=== PATIENT | female | born 1975 | race Caucasian/White ===

== ENCOUNTER 2019-01-04 09:33 | Emergency (ER) | payer OTHER ==
[2019-01-04] MEDS ORDERED: TORAdol 30 mg Injection IM ONE (10:06)
[2019-01-04 10:07] VITALS: BP 146/86; PULSE 78; O2SAT 97
[2019-01-04] MEDS ORDERED: TORAdol 30 mg Injection ONE (10:13)
--- NOTE | 2019-01-04 10:15 | ERPHSYRPT ---
- History of Present Illness Time Seen by Provider: 01/04/19 10:13 Source: patient Exam Limitations: no limitations Patient Subjective Stated Complaint: alert and oriented. states fell into a hole twisting right ankle. states heard pop Triage Nursing Assessment: states fell into a hoole twisting right ankle.. pain and swelling to lateral aspect of the ankle bruising noted. + pedal pulse present. denies other injuries Physician History: alert and oriented. states fell into a hole twisting right ankle. states heard pop Method of Injury: fell Occurred: yesterday Quality: constant, throbbing Severity of Pain-Max: moderate Severity of Pain-Current: moderate Lower Extremities Pain: ankle: right Modifying Factors: Improves With: cold therapy Associated Symptoms: unable to bear weight Allergies/Adverse Reactions: terfenadine [From Seldane] Allergy (Severe, Verified 07/22/15 09:01) Home Medications: Hydrocodone Bit/Acetaminophen [[place] 7.5-325 Tablet] 1 each PO Q3H/PRN PRN 09/20 [History] Methylprednisolone 4 mg [Medrol 4 mg] 4 mg PO DAILY 10/13/15 [History] Immunizations Up to Date: (unknown) - Review of Systems Constitutional: No Symptoms Eyes: No Symptoms Ears, Nose, & Throat: No Symptoms Respiratory: No Symptoms Cardiac: No Symptoms Abdominal/Gastrointestinal: No Symptoms Musculoskeletal: Deformity, Fall, Joint Pain (right ankle), Joint Swelling - Past Medical History Pertinent Past Medical History: Yes Neurological History: No Pertinent History ENT History: No Pertinent History Cardiac History: No Pertinent History Respiratory History: No Pertinent History Endocrine Medical History: No Pertinent History GI Medical History: No Pertinent History History: No Pertinent History Psycho-Social History: No Pertinent History Female Reproductive Disorders: No Pertinent History Other Medical History: bulging disc - Past Surgical History Past Surgical History: Yes Neuro Surgical History: No Pertinent History Cardiac: No Pertinent History Respiratory: No Pertinent History Gastrointestinal: Cholecystectomy Genitourinary: No Pertinent History Musculoskeletal: No Pertinent History Female Surgical History: No Pertinent History - Social History Smoking Status: Never smoker How long have you smoked: 20+ YEARS Exposure to second hand smoke: No Drug Use: none Patient Lives Alone: No - Female History Hx Now: No - Nursing Vital Signs Nursing Vital Signs: Initial Vital Signs Temperature 97.8 F 01/04/19 09:59 Pulse Rate 78 01/04/19 09:59 Respiratory Rate 18 01/04/19 09:59 Blood Pressure 146/86 01/04/19 09:59 O2 Sat by Pulse Oximetry 97 01/04/19 09:59 Pain Scale Pain Intensity 8 - Physical Exam General Appearance: no apparent distress Ankle Exam: right ankle: limited range of motion, soft tissue tenderness, swelling SpO2: 97 Procedures - Splinting Location of Splint: Right Type of Splint: Walking Boot/Shoe Splint Applied By: ED Nurse Pre-Proc Neuro Vasc Exam: normal Post-Proc Neuro Vasc Exam: neurovascular intact - Course Nursing assessment & vital signs reviewed: Yes - Radiology Exams Ankle X-ray Interpretation: Reviewed by me, Negative, No Fracture, No Subluxation Ordered Tests: Active Orders 24 hr Category Date Time Status Splint STAT Care 01/04/19 10:35 Active ANKLE (3 VIEWS) Stat Exams 01/04/19 10:05 Taken Medication Summary Discontinued Medications Generic Name Dose Route Start Last Admin Trade Name Freq PRN Reason Stop Dose Admin Ketorolac Tromethamine 60 mg 01/04/19 10:06 01/04/19 10:16 Toradol 30 Mg Injection IM 01/04/19 10:07 60 mg STAT ONE Administration Ketorolac Tromethamine Confirm 01/04/19 10:13 Toradol 30 Mg Injection Administered 01/04/19 10:14 Dose 60 mg .ROUTE .STK-MED ONE - Progress Progress: improved, pain not gone completely Progress Note: 01/04/19 10:37 boot applied Counseled pt/family regarding: diagnosis, need for follow-up, rad results - Departure Departure Disposition: Home Clinical Impression: High ankle sprain of right lower extremity Qualifiers: Encounter type: initial encounter Qualified Code(s): S93.431A - Sprain of tibiofibular ligament of right ankle, initial encounter Condition: Stable Critical Care Time: No Referrals: ANU LU [Primary Care Provider] - Followup in 3 days w/ PCP Instructions: Foot Sprain (DC) Additional Instructions: SPRAINS/STRAINS/CONTUSIONS 1. Rest the affected area as much as possible for the next few days. 2. Apply ice to the affected area for 20-30 minutes at a time, several times a day. 3. If you receive an elastic wrap, wear it only while awake for comfort and support. Re-wrap the elastic wrap if it feels too tight or too loose. 4. If swelling is present, elevate the affected part above the level of the heart for at least 2 to 3 days. 5. Use splints, slings, or crutches as instructed. 6. Watch for severe swelling, coldness, numbness, and discoloration of the fingers and toes. See your family physician or return to the emergency department if any of these are noted. Discharge/Care Plan KARAN AVALOS was seen on 01/04/19 in the Emergency Room. The patient was counseled regarding Diagnosis,Lab results, Imaging studies, need for follow up and when to return to the Emergency Room. Prescriptions given: Discharge Note I have spoken with the patient and/or caregivers. I have explained the patient' s condition, diagnosis and treatment plan based on the information available to me at this time. I have answered the patient's and/or caregiver's questions and addressed any concerns. The patient and/or caregivers have as good understanding of the patient's diagnosis, condition and treatment plan as can be expected at this point. The vital signs have been stable. The patient's condition is stable and appropriate for discharge from the emergency department. The patient will pursue further outpatient evaluation with the primary care physician or other designated or consulting physician as outlined in the discharge instructions. The patient and/or caregivers are agreeable to this plan of care and follow-up instructions have been explained in detail. The patient and/or caregivers have received these instruction. The patient/and or caregivers are aware that any significant change in condition or worsening of symptoms should prompt an immediate return to this or the closest emergency department or call 911. Forms: Work/School Release Form Prescriptions: Naproxen 500 mg [Naprosyn 500 MG] 500 mg PO BIDAC #30 tablet
--- NOTE | 2019-01-04 20:14 | XRAY ---
Indication: Pain and swelling following injury. Comparison: None 3 views of the right ankle demonstrates lateral soft tissue swelling. No other bony, articular, or soft tissue abnormalities.
== END 2019-01-04 11:16 | disposition home or self-care (01) ==
LOC: ED 09:33
DX: S93.431A Sprain of tibiofibular ligament of right ankle, initial encounter (principal)
CPT/HCPCS: 73610; 96372; 99283; J1885

== ENCOUNTER 2021-07-22 16:13 | Emergency (ER) | payer OTHER ==
[2021-07-22] MEDS ORDERED: TORAdol 30 mg Injection IM ONE (17:13)
[2021-07-22] MEDS ORDERED: TORAdol 30 mg Injection ONE (17:17)
--- NOTE | 2021-07-22 17:19 | ERPHSYRPT ---
- History of Present Illness Time Seen by Provider: 07/22/21 16:32 Source: patient Exam Limitations: no limitations Patient Subjective Stated Complaint: Patient states she tripped and fell on and fell on her right arm. She is c/o right arm pain from her shoulder all the way down to her wrist. Rates pain #10 on 0-10 scale. Triage Nursing Assessment: Patient ambulated back to ED. She is holding her right arm across her chest in a gaurding fashion. She is alert and oriented and answering questions appropriately. Patient is able to wiggle fingers to right hand but states when she does that is shoots a sharp pain up her forearm. Patient able to raise right arm off of bed on her own but indicates that if she raises it too high, it shoots a sharp pain through her shoulder and armpit. Cap refill rapid. Color normal skin tone. Physician History: 45 years old female presented in the ER with chief complaint of right shoulder and elbow pain after she tripped and fell 2 days ago and tried to stop herself with right upper extremity. Since then she is having gradually worsening sharp pain moderate to severe intensity, more with movements and partially relieved with holding it closer to chest wall. Did not hit her head. No loss of consciousness. Occurred: days ago (2) Method of Injury: fell Quality: sharpness Severity of Pain-Max: severe Severity of Pain-Current: severe Extremities Pain Location: shoulder: right, arm: right, elbow: right Modifying Factors: Improves With: immobilization, rest. Worsens With: movement Associated Symptoms: none Allergies/Adverse Reactions: terfenadine [From Seldane] Allergy (Severe, Verified 07/22/21 16:39) Hx Tetanus, Diphtheria Vaccination/Date Given: Yes Hx Influenza Vaccination/Date Given: No Hx Pneumococcal Vaccination/Date Given: No Immunizations Up to Date: Yes Travel Risk - International Travel Have you traveled outside of the country in past 3 weeks: No - Coronavirus Screening Are you exhibiting any of the following symptoms?: No Close contact with a COVID-19 positive Pt in past 14-21 Days: No - Vaccine Status Have you recieved a Covid-19 vaccination: Yes Cable Respooler: Moderna - Vaccination Dates Date of 2cond Vaccination (if applicable): unknown - Review of Systems Constitutional: No Symptoms Eyes: No Symptoms Ears, Nose, & Throat: No Symptoms Respiratory: No Symptoms Cardiac: No Symptoms Abdominal/Gastrointestinal: No Symptoms Genitourinary Symptoms: No Symptoms Musculoskeletal: Fall, Joint Pain Skin: No Symptoms Neurological: No Symptoms Psychological: No Symptoms Endocrine: No Symptoms Hematologic/Lymphatic: No Symptoms - Past Medical History Pertinent Past Medical History: Yes Neurological History: No Pertinent History ENT History: No Pertinent History Cardiac History: No Pertinent History Respiratory History: No Pertinent History Endocrine Medical History: No Pertinent History GI Medical History: No Pertinent History History: No Pertinent History Psycho-Social History: No Pertinent History Female Reproductive Disorders: No Pertinent History Other Medical History: bulging disc - Past Surgical History Past Surgical History: Yes Neuro Surgical History: No Pertinent History Cardiac: No Pertinent History Respiratory: No Pertinent History Gastrointestinal: Cholecystectomy Genitourinary: No Pertinent History Musculoskeletal: No Pertinent History Female Surgical History: No Pertinent History Other Surgical History: cryo surgery - Social History Smoking Status: Current every day smoker How long have you smoked: 30 years Exposure to second hand smoke: No Drug Use: none Patient Lives Alone: No - Female History Hx Now: No - Nursing Vital Signs Nursing Vital Signs: Initial Vital Signs Temperature 97.5 F 07/22/21 16:41 Pulse Rate 92 H 07/22/21 16:41 Respiratory Rate 18 07/22/21 16:41 Blood Pressure 130/78 07/22/21 16:41 O2 Sat by Pulse Oximetry 98 07/22/21 16:41 Pain Scale Pain Intensity 10 - Physical Exam General Appearance: no apparent distress, alert Eyes, Ears, Nose, Throat Exam: normal ENT inspection, pharynx normal, moist mucous membranes Neck Exam: normal inspection, non-tender, supple, full range of motion Cardiovascular/Respiratory Exam: chest non-tender, normal breath sounds, regular rate/rhythm, heart sounds normal Abdominal Exam: non-tender, soft Back Exam: normal inspection, normal range of motion, No CVA tenderness Shoulder Exam: normal inspection, bone tenderness, limited ROM, soft tissue tenderness (Right) Elbow/Forearm Exam: normal inspection, limited ROM (Right), soft tissue tenderness Wrist Exam: normal inspection, non-tender, no evidence of injury, normal ROM Hand Exam: normal inspection, non-tender, no evidence of injury Neuro/Tendon Exam: normal sensation, normal motor functions Mental Status Exam: alert Skin Exam: normal color SpO2 Interpretation: normal SpO2: 98 O2 Delivery: Room Air Ordered Tests: Active Orders 24 hr Category Date Time Status ELBOW (MINIMUM 3 VIEWS) Stat Exams 07/22/21 16:39 Ordered FOREARM Stat Exams 07/22/21 16:40 Ordered HUMERUS Stat Exams 07/22/21 16:39 Ordered SHOULDER Stat Exams 07/22/21 16:38 Ordered WRIST (MIN 3 VIEWS) Stat Exams 07/22/21 16:40 Ordered Medication Summary Generic Name Dose Route Start Last Admin Trade Name Freq PRN Reason Stop Dose Admin Ketorolac Tromethamine 30 mg 07/22/21 17:13 Ketorolac Tromethamine 30 Mg/Ml Inj IM 07/22/21 17:14 STAT ONE - Progress Progress: pain not gone completely Progress Note: 07/22/21 17:19 I did not appreciate any obvious fracture dislocation on x-rays reviewed by me, official report is pending. She is placed in a sling, probably have ligamentous strain, will give NSAIDs and muscle relaxant to go home. Outpatient follow-up. Counseled pt/family regarding: diagnosis, need for follow-up, rad results - Departure Departure Disposition: Home Clinical Impression: Right shoulder strain Qualifiers: Encounter type: initial encounter Qualified Code(s): S46.911A - Strain of unspecified muscle, fascia and tendon at shoulder and upper arm level, right arm, initial encounter Fall Qualifiers: Encounter type: initial encounter Qualified Code(s): W19.XXXA - Unspecified fall, initial encounter Condition: Stable Critical Care Time: No Referrals: ANU [facility] [Primary Care Provider] - Follow Up with PCP/3 days [facility] - NICOLE FOURNIER NP [NON-STAFF PHY W/O PRIVILEGES] - Follow up/PCP as directed (In 2 days for reevaluation) Instructions: Shoulder Sprain Additional Instructions: Take Tylenol/ibuprofen as needed. Follow-up with your primary care/orthopedic surgery for reevaluation. Return to ER for worsening pain. Avoid exertional activity with right upper extremity. Prescriptions: Ibuprofen 600 mg PO Q6HPRN PRN 10 Days #20 tablet PRN Reason: Pain Methocarbamol 500 mg [Robaxin 500 MG] 500 mg PO Q6-8HPRN PRN 7 Days #20 tablet PRN Reason: Pain
[2021-07-22 17:26] VITALS: BP 105/72; PULSE 72; O2SAT 99
--- NOTE | 2021-07-22 19:38 | XRAY ---
Indication: Pain following fall 3 days ago. Comparison: None 3 view right shoulder mild AC degenerative arthropathy and a few axillary calcified nodes. No other bony, articular, or soft tissue abnormalities.
--- NOTE | 2021-07-22 19:38 | XRAY ---
Indication: Pain following fall 3 days ago. Comparison: None 2 view right humerus demonstrates a few axillary calcified nodes. No other bony, articular, or soft tissue abnormalities.
--- NOTE | 2021-07-22 19:38 | XRAY ---
Indication: Pain following fall 3 days ago. Comparison: None 3 view right elbow obtained. No bony, articular, or soft tissue abnormalities.
--- NOTE | 2021-07-22 19:40 | XRAY ---
Indication: Pain following fall 3 days ago. Comparison: None 3 view right wrist obtained. No bony, articular, or soft tissue abnormalities.
--- NOTE | 2021-07-22 19:40 | XRAY ---
Indication: Pain following fall 3 days ago. Comparison: None 2 view right forearm obtained. No bony, articular, or soft tissue abnormalities.
== END 2021-07-22 17:33 | disposition home or self-care (01) ==
LOC: ED 16:13
DX: S46.911A Strain of unspecified muscle, fascia and tendon at shoulder and upper arm level, right arm, initial encounter (principal); W01.0XXA Fall on same level from slipping, tripping and stumbling without subsequent striking against object, initial encounter; M25.521 Pain in right elbow; Z72.0 Tobacco use
CPT/HCPCS: 73030; 73060; 73080; 73090; 73110; 96372; 99284; J1885

== ENCOUNTER 2023-01-01 15:23 | Emergency (ER) | payer OTHER ==
--- NOTE | 2023-01-01 15:39 | ERPHSYRPT ---
- History of Present Illness Time Seen by Provider: 01/01/23 15:39 Source: patient Exam Limitations: no limitations Physician History: This is an obese 47-year-old white female patient of Dr. Rizwan Lu who has had cough, aches, fevers and decreased appetite for approximately 6 days. She was exposed to a daughter who turned from recent travel to [place] with the same symptoms. This patient has cough production of green and brownish sputum. The patient was given a prescription for steroids, Augmentin antibiotic, and albuterol solution for nebulizer. She is also given a prescription for codeine- based cough syrup and Tessalon Perles. Initially those were helping. However since that initial dosing, her symptoms is worsened. Patient has a history of hypothyroidism, diabetes, anxiety, hypertension, hyperlipidemia. Patient is a daily smoker of cigarettes. Timing/Duration: day(s) (6) Fever Severity: mild Fever Therapy PATIENT CARE ASSISTANT: none Associated Symptoms: cough, muscle aches, shortness of breath, sore throat Allergies/Adverse Reactions: terfenadine [From Seldane] Allergy (Severe, Verified 01/01/23 15:41) Home Medications: ALPRAZolam [Alprazolam] 0.5 mg PO DAILY 01/01/23 [History] Amox Tr/Potass Clav. 875 mg [Augmentin 875-125 Tablet] 1 ea BID 01/01/23 [History] Codeine Phosphate/Guaifenesin [Codeine-Guaifen 10-100 mg/5 ml] 5 ml BID 01/01/23 [History] Empagliflozin [Jardiance] 1 ea DAILY 01/01/23 [History] Escitalopram Oxalate 20 mg PO DAILY 01/01/23 [History] Ezetimibe/Rosuvastatin Calcium [Rosuvastatin-Ezetimibe 20-10Mg] 1 each PO DAILY 01/01/23 [History] Levothyroxine Sodium 50 Mcg [Synthroid 50 Mcg] 50 mcg PO DAILY 01/01/23 [History] Metformin HCl 500 mg [Glucophage 500 MG] 500 mg PO DAILY 01/01/23 [History] Prednisone 20 mg [Deltasone 20 mg] 20 mg PO DAILY 01/01/23 [History] lisinopriL [Zestril] 2.5 mg PO DAILY 01/01/23 [History] Hx Tetanus, Diphtheria Vaccination/Date Given: Yes Hx Influenza Vaccination/Date Given: No Hx Pneumococcal Vaccination/Date Given: No Travel Risk - International Travel Have you traveled outside of the country in past 3 weeks: No - Coronavirus Screening Are you exhibiting any of the following symptoms?: Yes Symptoms: Fever, Cough: New Onset, Shortness of Breath, Headaches/Body Aches/Fatigue Close contact with a COVID-19 positive Pt in past 14-21 Days: No - Vaccine Status Have you recieved a Covid-19 vaccination: Yes Production Sound Mixer: Moderna - Vaccination Dates Date of 2cond Vaccination (if applicable): unknown - Review of Systems Constitutional: Fever, Weakness Eyes: No Symptoms Ears, Nose, & Throat: Throat Pain Respiratory: Cough, Dyspnea Cardiac: No Symptoms Abdominal/Gastrointestinal: No Symptoms Genitourinary Symptoms: No Symptoms Musculoskeletal: No Symptoms Skin: No Symptoms Neurological: No Symptoms Psychological: No Symptoms Endocrine: No Symptoms Hematologic/Lymphatic: No Symptoms Immunological/Allergic: No Symptoms All Other Systems: Reviewed and Negative - Past Medical History Pertinent Past Medical History: Yes Neurological History: No Pertinent History ENT History: No Pertinent History Cardiac History: No Pertinent History Respiratory History: No Pertinent History Endocrine Medical History: No Pertinent History GI Medical History: No Pertinent History History: No Pertinent History Psycho-Social History: No Pertinent History Female Reproductive Disorders: No Pertinent History Other Medical History: bulging disc - Past Surgical History Past Surgical History: Yes Neuro Surgical History: No Pertinent History Cardiac: No Pertinent History Respiratory: No Pertinent History Gastrointestinal: Cholecystectomy Genitourinary: No Pertinent History Musculoskeletal: No Pertinent History Female Surgical History: No Pertinent History Other Surgical History: cryo surgery - Social History Smoking Status: Current every day smoker How long have you smoked: 30 years Exposure to second hand smoke: No Drug Use: none Patient Lives Alone: No - Nursing Vital Signs Nursing Vital Signs: Initial Vital Signs Temperature 98.8 F 01/01/23 15:48 Pulse Rate 80 01/01/23 15:48 Respiratory Rate 18 01/01/23 15:48 Blood Pressure 145/97 01/01/23 15:48 O2 Sat by Pulse Oximetry 97 01/01/23 15:48 Pain Scale Pain Intensity 8 - Physical Exam General Appearance: mild distress, alert, anxiety, obese Eye Exam: PERRL/EOMI, eyes nml inspection ENT Exam: normal ENT inspection, hearing grossly normal Neck Exam: normal inspection, non-tender, supple, full range of motion, trachea midline Respiratory Exam: normal breath sounds, lungs clear, no respiratory distress, no accessory muscle use, No chest non-tender, No decreased breath sounds, No respiratory distress Cardiovascular/Chest Exam: normal heart sounds, regular rate/rhythm Gastrointestinal/Abdominal Exam: soft, non tender, no distention, no mass, no guarding, no ecchymosis, no organomegaly, no pulsatile mass, normal bowel sounds Pelvic Exam: not done Rectal Exam: not done Extremity Exam: non-tender, normal range of motion, normal inspection, normal capillary refill, no calf tenderness, no pedal edema, pelvis stable Neurologic Exam: alert, oriented x 3, cooperative, files supervisor II-XII nml as tested, normal mood/affect, nml cerebellar function, nml station & gait, sensation nml Skin Exam: normal color, warm, dry Lymphatic: No adenopathy SpO2 Interpretation: normal O2 Delivery: Room Air - Course Nursing assessment & vital signs reviewed: Yes Ordered Tests: Active Orders 24 hr Category Date Time Status CHEST 1 VIEW (PORTABLE) Stat Exams 01/01/23 16:00 Completed UA W/RFX UR CULTURE Stat Lab 01/01/23 16:06 Completed Respiratory Therapy Assessment DAILY RT 01/01/23 16:18 Active Medication Summary Discontinued Medications Generic Name Dose Route Start Last Admin Trade Name Freq PRN Reason Stop Dose Admin Hydrocodone Bitart/Acetaminophen 10 ml 01/01/23 16:01 01/01/23 16:17 Hydrocodone/Acetaminophen 5 Ml Udcup PO 01/01/23 16:02 10 ml STAT STA Administration Hydrocodone Bitart/Acetaminophen Confirm 01/01/23 16:17 Hydrocodone/Acetaminophen 5 Ml Udcup Administered 01/01/23 16:18 Dose 10 ml .ROUTE .STK-MED ONE Albuterol/Ipratropium 3 ml 01/01/23 16:06 01/01/23 16:16 Ipratropium/Albuterol Sulfate 3 Ml Ampul.Neb IH 01/01/23 16:07 3 ml STAT ONE Administration Albuterol/Ipratropium Confirm 01/01/23 16:06 Ipratropium/Albuterol Sulfate 3 Ml Ampul.Neb Administered 01/01/23 16:07 Dose 3 ml IH .STK-MED ONE Methylprednisolone Sodium 0 mg 01/01/23 16:00 01/01/23 16:18 Succinate 125 mg/ Sterile IM 01/01/23 16:01 125 mg Water 2 ml STAT ONE Administration Methylprednisolone Sodium Succinate Confirm 01/01/23 16:17 Methylprednis Sod Succ 125 Mg/2 Ml Vial Administered 01/01/23 16:18 Dose 125 mg .ROUTE .STK-MED ONE Sterile Water Confirm 01/01/23 16:16 Water For Injection,Sterile 10 Ml Vial Administered 01/01/23 16:17 Dose 10 ml IJ .STK-MED ONE Lab/Rad Data: Laboratory Results 01/01/23 01/01/23 01/01/23 Range/Units 16:10 16:10 16:06 Urine Color Yellow (Yellow) Urine Appearance Clear (Clear) Urine pH 7.5 (4.6-8.0) Ur Specific [place] 1.020 (1.005-1.030) Urine Protein Negative (Negative) Urine Glucose (UA) >=1000 A (Negative) mg/dL Urine Ketones Negative (Negative) Urine Blood Small A (Negative) Urine Nitrite Negative (Negative) Urine Bilirubin Negative (Negative) Urine Urobilinogen 0.2 (0.2) mg/dL Ur Leukocyte Esterase Trace A (Negative) U Hyaline Cast (Auto) NONE SEEN (0-2) /LPF Urine Microscopic RBC 11-20 A (0-5) /HPF Urine Microscopic WBC 0-2 (0-5) /HPF Ur Epithelial Cells Rare (None Seen) /HPF Urine Bacteria None Seen (None Seen) /HPF Urine Culture Reflexed NO (NO) Influenza Type A Ag NEGATIVE (NEGATIVE) Influenza Type B Ag NEGATIVE (NEGATIVE) RSV (PCR) NEGATIVE (NEGATIVE) SARS-CoV-2 (PCR) NEGATIVE (NEGATIVE) Group A Strep Antibody NOT DETECTED (NEGATIVE) - Progress Progress: improved Progress Note: 01/01/23 17:02 Chest x-ray was interpreted by the radiologist and I reviewed the impression. There are no acute cardiopulmonary findings. 01/01/23 17:15 This patient's medical issue is 1 of moderate complexity. The level complexity in the work-up performed is based on the review of the patient's past medical history, review of the patient's medication list, review of the patient's drug allergy list, history of present illness, physical findings on examination. Work-up includes urinalysis and viral swabs. Group A strep swab. We also performed a chest x-ray. The patient likely has an upper respiratory infection. It is difficult to discern whether or not this is viral in origin or bacterial. Patient has been on Augmentin without much improvement. She has been on Augmentin for approximately 4 to 5 days. She thinks that the h ydrocodone elixir worked better than her codeine elixir and Tessalon Perles. Therefore, the patient is to stop her codeine elixir and stop the Tessalon Perles. I discussed this with her. She is to avoid exposure to any kind of smoke. We will give her an injection of Rocephin 1 g intramuscularly. She is to continue her steroids as prescribed. She is to stop her Augmentin antibiotic. We will change her outpatient antibiotic to Z-Xavier. Patient is to use her albuterol nebulizer machine every 4 hours while awake. She is also to drink plenty of fluids and to use Mucinex DM. She may also use Lou-D or Claritin-D. Counseled pt/family regarding: lab results, diagnosis, need for follow-up, rad results Medical Desision Making - Diagnostic Testing Diagnostic test were ordered, analyzed, and reviewed by me: Yes Radiological Interpretation: Reviewed by me, Teleradiologist Report - Risk of complications The pt has a mod risk of morbidity or mortality based on: Need for prescription drug management - Departure Departure Disposition: Home Clinical Impression: Upper respiratory infection Condition: Stable Critical Care Time: No Referrals: ANU LU [Primary Care Provider] - Follow up/PCP as directed Additional Instructions: Stop your Augmentin. Use Z-Xavier instead. Continue your steroids as prescribed. Use your albuterol nebulizer every 4 hours while awake. Stop your Tessalon Perles and codeine cough medicine and use the hydrocodone cough medicine instead. Avoid exposure to any type of smoke. May use [id number] Mucinex DM, Lou-D or Claritin-D antihistamine/decongestant combination. Follow-up with your primary care provider for further evaluation management. Forms: Work/School Release Form Prescriptions: Hydrocodone/Acetaminophen [Hydrocodone-Acetamn 7.5-325/15] 10 ml PO Q8H PRN PRN #120 ml MDD 30 ml PRN Reason: Cough Azithromycin 250 mg [Zithromax 250 MG TABLET] 250 mg PO ZPACK #6 tablet
[2023-01-01] MEDS ORDERED: solu-MEDROL 125 MG, Sterile H2O 10 ml 2 ML IM ONE ×2 (16:00)
[2023-01-01] MEDS ORDERED: HYDROCODONE-ACETAMIN 2.5-108/5 ML SOLUTION PO STA (16:01)
[2023-01-01] MEDS ORDERED: DUONEB 0.5-3 MG/3 ml Neb IH ONE ×2 (16:06)
[2023-01-01] MEDS ORDERED: Sterile H2O 10 ml IJ ONE (16:16)
[2023-01-01] MEDS ORDERED: HYDROCODONE-ACETAMIN 2.5-108/5 ML SOLUTION ONE (16:17)
[2023-01-01] MEDS ORDERED: solu-MEDROL ONE (16:17)
--- NOTE | 2023-01-01 16:42 | XRAY ---
Indication: Cough. Comparison: September 17, 2022 Portable chest again demonstrates normal heart and lungs. Bony thorax intact again with minimal dextroscoliosis. No new/acute findings.
[2023-01-01 16:49] LABS: Appearance Clear (Clear); Bilirubin Negative (Negative); Blood Small (Negative); Glucose, Urine >=1000 mg/dL (Negative); Ketones Negative (Negative); Leukocyte Esterase Trace (Negative); Nitrite Negative (Negative); Ph 7.5 (4.6-8.0); Protein,Urine Dip Negative (Negative); Urobilinogen 0.2 mg/dL (0.2)
[2023-01-01 16:54] LABS: INFLUENZA A NEGATIVE (NEGATIVE); INFLUENZA B NEGATIVE (NEGATIVE); RESPIRATORY SYNCTIAL VIRUS NEGATIVE (NEGATIVE); SARS-CoV-2 Xpert Express NEGATIVE (NEGATIVE)
[2023-01-01 16:55] LABS: ADD URINE CULTURE? NO (NO); Bacteria None Seen /HPF (None Seen); Epithelial Cells Rare /HPF (None Seen); Hyaline Casts NONE SEEN /LPF (0-2); WBC 0-2 /HPF (0-5)
[2023-01-01] MEDS ORDERED: Rocephin 1000 MG INJ IM ONE (17:14)
[2023-01-01] MEDS ORDERED: XYLOCAINE 1% HCL 20 ML MDV ONE (17:35)
[2023-01-01] MEDS ORDERED: Rocephin 1000 MG INJ ONE (17:35)
[2023-01-01 17:47] VITALS: BP 124/87; PULSE 72; O2SAT 96
== END 2023-01-01 17:52 | disposition home or self-care (01) ==
LOC: ED 15:23
DX: J06.9 Acute upper respiratory infection, unspecified (principal); R50.9 Fever, unspecified; R05.9 Cough, unspecified; M79.10 Myalgia, unspecified site; E11.9 Type 2 diabetes mellitus without complications; I10 Essential (primary) hypertension; E78.5 Hyperlipidemia, unspecified; Z79.84 Long term (current) use of oral hypoglycemic drugs; Z79.52 Long term (current) use of systemic steroids; Z79.891 Long term (current) use of opiate analgesic; Z79.899 Other long term (current) drug therapy; Z72.0 Tobacco use
CPT/HCPCS: 0241U; 71045; 81001; 87651; 94640; 96372; 99283; J0696; J2930; A9270-GY

== ENCOUNTER 2024-01-22 12:11 | Emergency (ER) | payer OTHER ==
[2024-01-22 12:59] VITALS: PULSE 79; RESP 19; O2SAT 97
--- NOTE | 2024-01-22 13:06 | ERPHSYRPT ---
- History of Present Illness Time Seen by Provider: 01/22/24 12:52 Source: patient Exam Limitations: no limitations Patient Subjective Stated Complaint: My left knee cap dislocated on 01/21/24 around 0130 when I was getting otu of bed. Triage Nursing Assessment: Patient reports to ER after being seen in office by Dr. Rizwan Lu for her "dislocated left knee cap" that corrected in position. Patient reports that he left knee cap became dislocated yesterday morning around 0130 when she attempted to get out of bed. Patient reports that she twisted her knee causing it to pop out of place. Patient reports that it was out of place for an hour or so before placement was corrected. Patient reports that she has experienced pain and swelling in LLE since the injury occured. Patient states that she took a [place] 5/325mg tablet this morning around 0300 and tylenol 650mg around [address] Rizwan Lu gave her a toradol IM injection in office but she is unsure of the dose. Patient is still rating pain 10/10 at this time. Patient was able to ambulate back to ER room without assistive device or assistance. No visible injury noted and patient is able to move extremity WNL but does report increased pain with movement. . . Physician History: Pt states yesterday at 1:30 AM she was trying to get out of bed at home and twisted her left knee with patellar dislocation and pain; states the patella reduced about 1 hour later. Allergies/Adverse Reactions: terfenadine [From Seldane] Allergy (Severe, Verified 01/22/24 12:43) Home Medications: ALPRAZolam [Alprazolam] 0.5 mg PO DAILY 01/01/23 [History] Amox Tr/Potass Clav. 875 mg [Augmentin 875-125 Tablet] 1 ea BID 01/01/23 [History] Codeine Phosphate/Guaifenesin [Codeine-Guaifen 10-100 mg/5 ml] 5 ml BID 01/01/23 [History] Empagliflozin [Jardiance] 1 ea DAILY 01/01/23 [History] Escitalopram Oxalate 20 mg PO DAILY 01/01/23 [History] Ezetimibe/Rosuvastatin Calcium [Rosuvastatin-Ezetimibe 20-10Mg] 1 each PO DAILY 01/01/23 [History] Levothyroxine Sodium 50 Mcg [Synthroid 50 Mcg] 50 mcg PO DAILY 01/01/23 [History] Metformin HCl 500 mg [Glucophage 500 MG] 500 mg PO DAILY 01/01/23 [Hist ory] Prednisone 20 mg [Deltasone 20 mg] 20 mg PO DAILY 01/01/23 [History] lisinopriL [Zestril] 2.5 mg PO DAILY 01/01/23 [History] Hx Tetanus, Diphtheria Vaccination/Date Given: Yes Hx Influenza Vaccination/Date Given: No Hx Pneumococcal Vaccination/Date Given: No Travel Risk - International Travel Have you traveled outside of the country in past 3 weeks: No - Emerging Infectious Disease Are you exhibiting symptoms associated with any current EIDs: No - Review of Systems Musculoskeletal: Joint Pain (left knee) - Past Medical History Pertinent Past Medical History: Yes Neurological History: No Pertinent History ENT History: No Pertinent History Cardiac History: No Pertinent History Respiratory History: No Pertinent History Endocrine Medical History: Diabetes Type II, Hypothyroidism GI Medical History: No Pertinent History History: No Pertinent History Psycho-Social History: No Pertinent History Female Reproductive Disorders: No Pertinent History Other Medical History: bulging disc - Past Surgical History Past Surgical History: Yes Neuro Surgical History: No Pertinent History Cardiac: No Pertinent History Respiratory: No Pertinent History Gastrointestinal: Cholecystectomy Genitourinary: No Pertinent History Musculoskeletal: No Pertinent History Female Surgical History: No Pertinent History Other Surgical History: cryo surgery - Female History Hx Now: No - Social History Smoking Status: Current every day smoker How long have you smoked: 30 years Exposure to second hand smoke: No Drug Use: none Patient Lives Alone: No - Social Determinants of Health Will the patient participate in the screening: Yes Do you worry about a steady place to live?: No Do you have any problems with any of the following?: No known problems In the past 12 months,have you had to go without utilities?: No Transportation Issues: No Has anyone in your support network made you feel unsafe?: No Have you or anyone in your house had to go without enough: No - Nursing Vital Signs Nursing Vital Signs: Initial Vital Signs Pulse Rate 79 01/22/24 12:44 Respiratory Rate 19 01/22/24 12:44 Blood Pressure 142/75 01/22/24 12:44 O2 Sat by Pulse Oximetry 97 01/22/24 12:44 Pain Scale Pain Intensity 10 - Physical Exam General Appearance: alert Knees Exam: left knee: soft tissue tenderness (mild tenderness and edema with decreased rom of the left knee) Ankle Exam: left ankle: normal range of motion Foot Exam: left foot: normal range of motion Neuro/Tendon Exam: normal sensation Mental Status Exam: alert, cooperative Skin Exam: warm, dry SpO2 Interpretation: normal SpO2: 97 O2 Delivery: Room Air - Course Nursing assessment & vital signs reviewed: Yes - Radiology Exams Left Knee X-ray Interpretation: Discussed w/ radiologist (No bony, articular or soft tissue abnormalities.) Ordered Tests: Active Orders 24 hr Category Date Time Status Martin Bandage Application -[facility] STAT Care 01/22/24 13:06 Active Crutches STAT Care 01/22/24 13:06 Active KNEE (3 VIEWS) Stat Exams 01/22/24 13:06 Completed Medication Summary Discontinued Medications Generic Name Dose Route Start Last Admin Trade Name Storm PRN Reason Stop Dose Admin Hydrocodone Bitart/Acetaminophen 2 tab 01/22/24 13:06 01/22/24 13:10 Hydrocodone/Apap 5/325 1 Tab Tablet PO 01/22/24 13:07 2 tab STAT ONE Administration Hydrocodone Bitart/Acetaminophen Confirm 01/22/24 13:09 Hydrocodone/Apap 5/325 1 Tab Tablet Administered 01/22/24 13:10 Dose 2 tab .ROUTE .STK-MED ONE - Progress Progress: unchanged Counseled pt/family regarding: diagnosis, need for follow-up, rad results Medical Desision Making - Diagnostic Testing Diagnostic test were ordered, analyzed, and reviewed by me: Yes Radiological Interpretation: Discussed w/ radiologist - Departure Departure Disposition: Home Clinical Impression: Left knee sprain Condition: Stable Critical Care Time: No Referrals: ANU LU [Primary Care Provider] - Follow up/PCP as directed Instructions: Knee Sprain (DC) Additional Instructions: Follow up with private doctor tomorrow. Use crutches for ambulation for the next 2 weeks. Elevate left knee above heart level for 24 hours. No weight bearing on left foot for 2 days. Martin wrap to left knee for the next 4 days. Forms: Work/School Release Form Prescriptions: Ketorolac Trometh 10 mg Tab [TORAdol 10 MG TABLET] 10 mg PO Q8H PRN PRN #14 tablet PRN Reason: Pain
[2024-01-22] MEDS ORDERED: NORCO 5/325 MG ONE (13:09)
[2024-01-22] MEDS: NORCO 5/325 MG PO ONE (13:10)
--- NOTE | 2024-01-22 13:53 | XRAY ---
Indication: Pain following injury. Comparison: None 3 portable views left knee obtained. No bony, articular, or soft tissue abnormalities.
[2024-01-22 16:31] VITALS: BP 104/65
== END 2024-01-22 16:39 | disposition home or self-care (01) ==
LOC: ED 12:11
DX: S83.92XA Sprain of unspecified site of left knee, initial encounter (principal); X50.0XXA Overexertion from strenuous movement or load, initial encounter; Y92.003 Bedroom of unspecified non-institutional (private) residence as the place of occurrence of the external cause; E11.9 Type 2 diabetes mellitus without complications; Z79.84 Long term (current) use of oral hypoglycemic drugs; Z79.899 Other long term (current) drug therapy; Z72.0 Tobacco use
CPT/HCPCS: 73562; 99283; A9270-GY